=== PATIENT | male | born 1960 | race Two or more races ===

== ENCOUNTER 2016-07-12 11:11 | Emergency (ER) | payer OTHER | END 2016-07-12 12:07 | disposition home or self-care (01) | LOC: ED 11:11 | DX: S91.201D Unspecified open wound of right great toe with damage to nail, subsequent encounter (principal); I10 Essential (primary) hypertension; Z94.0 Kidney transplant status; Y83.8 Other surgical procedures as the cause of abnormal reaction of the patient, or of later complication, without mention of misadventure at the time of the procedure ==